=== PATIENT | female | born 1980 | race Hispanic/Latino ===

== ENCOUNTER 2018-01-06 17:54 | Emergency (ER) | payer OTHER ==
[2018-01-06 18:41] VITALS: RESP 18
--- NOTE | 2018-01-06 18:56 | ED PDOC ---
HPI: Skin/Bite Injury Time Seen by Provider: 01/06/18 18:57 Chief Complaint (Nursing): Abnormal Skin Integrity History Per: Patient History/Exam Limitations: no limitations Additional Complaint(s): 37-year-old female, presents to the emergency department with complaints of a painful rash to dorsal aspect of left foot that started around 03:00 this morning. Initially, pt notes area was itchy, and progressively became more painful and red. Over the past 5-6 hours, she noticed some blisters, prompting visit. States she is using antifungal creams on the area with no relief. Denies any weakness/numbness, known allergens. Past Medical History Reviewed: Historical Data, Nursing Documentation, Vital Signs Vital Signs: Last Vital Signs Temp 98.2 F 01/06/18 22:30 Pulse 70 01/06/18 22:30 Resp 18 01/06/18 22:30 BP 128/78 01/06/18 22:30 Pulse Ox 99 01/06/18 22:30 - Family History Family History: States: No Known Family Hx - Home Medications Home Medications: Ambulatory Orders Medication Instructions Recorded Cephalexin [Keflex] 500 mg PO QID #28 capsule 01/06/18 Methylprednisolone [Medrol Dose 4 mg PO DAILY #21 mg 01/06/18 Pack (21 tabs)] - Allergies Allergies/Adverse Reactions: Allergies Allergy/AdvReac Type Severity Reaction Status Date / Time No Known Allergies Allergy Verified 01/06/18 18:39 Review of Systems ROS Statement: Except As Marked, All Systems Reviewed And Found Negative Constitutional: Negative for: Fever Musculoskeletal: Positive for: Foot Pain Skin: Positive for: Rash Neurological: Negative for: Weakness, Numbness Physical Exam - Reviewed Nursing Documentation Reviewed: Yes Vital Signs Reviewed: Yes - Physical Exam Appears: Positive for: Non-toxic, No Acute Distress Skin: Positive for: Normal Color, Warm, Dry Eye Exam: Positive for: Normal appearance Neck: Positive for: Painless ROM Extremity: Positive for: Normal ROM, Other (Left foot: swelling, warmth, redness and blistering to dorsal aspect.). Negative for: Deformity, Swelling Neurologic/Psych: Positive for: Alert, Oriented - Laboratory Results Result Diagrams: 01/06/18 20:11 01/06/18 20:11 - ECG O2 Sat by Pulse Oximetry: 100 (RA) Pulse Ox Interpretation: Normal - Progress ED Course And Treament: TORADOL 15 MG IV X 1 DOSE SEEN BY PODIATRY RESIDENT. WILL GIVE RX FOR MEDROL DOSE PACK/KEFLEX AND PATIENT TO F/U WITH DR. HOUSTON THIS WEEK. Medical Decision Making Medical Decision Making: Plan; * Bloodwork * Ancef, Vancomycin, Tetanus * Blood culture * Reassess and Disposition Scribe Attestation: Documented by Lizzie Shelby, acting as a scribe for ELENA Cehn. Provider Scribe Attestation: All medical record entries made by the Scribe were at my direction and personally dictated by me. I have reviewed the chart and agree that the record accurately reflects my personal performance of the history, physical exam, medical decision making, and the department course for this patient. I have also personally directed, reviewed, and agree with the discharge instructions and disposition. Disposition - Clinical Impression Clinical Impression: Cellulitis, Insect bite of foot with local reaction - Patient ED Disposition Is Patient to be Admitted: No - Disposition Referrals: Xander Houston DPM [Staff Provider] - Disposition: Routine/Home Disposition Time: 21:58 Condition: FAIR Additional Instructions: NEW ADDRESS FOR DR. HOUSTON: [address] [place] [address], [address] [place] [id number] Prescriptions: Cephalexin [Keflex] 500 mg PO QID #28 capsule Methylprednisolone [Medrol Dose Pack (21 tabs)] 4 mg PO DAILY #21 mg Instructions: Cellulitis and Erysipelas (Skin Infections), Insect Bites and Stings (DC) Forms: [facility] ED School/Work Excuse
[2018-01-06] MEDS ORDERED: ceFAZolin 1 GM in Sodium Chloride 0.9% 100 ML IVPB ONE (18:57)
[2018-01-06] MEDS ORDERED: Tdap Vaccine 0.5 ml Vial (10-64 yrs) IM ONE ×2 (18:58→20:20)
[2018-01-06] MEDS ORDERED: DiphenhydrAMINE 50 mg/ml Inj IM STA (20:16)
[2018-01-06] MEDS ORDERED: Vancomycin 1 g Inj ONE (20:21)
[2018-01-06 20:24] LABS: BASO % 0.4 % (0.0-2.0); EOS # 0.2 K/uL (0.0-0.7); EOS % 2.4 % (0.0-4.0); HEMOGLOBIN 14.4 g/dL (12.0-16.0); LYMPH # 2.8 K/uL (1.0-4.3); LYMPH % 33.2 % (20.0-40.0); MEAN CELL VOLUME 89.8 fl (81.0-99.0); MEAN CORPUSCULAR HEMOGLOBIN 29.9 pg (27.0-31.0); MEAN CORPUSCULAR HGB CONC 33.3 g/dL (33.0-37.0); MEAN PLATELET VOLUME 8.8 fl (7.2-11.7); MONO # 0.5 K/uL (0.0-0.8); MONO % 6.5 % (0.0-10.0); NEUT # 4.8 K/uL (1.8-7.0); NEUT % 57.5 % (50.0-75.0); NRBC % 0.1 % (0.0-0.0); RBC 4.82 Mil/uL (3.80-5.20); RED CELL DISTRIBUTION WIDTH 13.1 % (11.5-14.5); WHITE BLOOD COUNT 8.3 K/uL (4.8-10.8)
[2018-01-06 20:37] LABS: BLOOD UREA NITROGEN 17 mg/dl (7-17); CALCIUM 9.6 mg/dL (8.4-10.2); GFR AFRICAN-AMERICAN > 60; GFR NON-AFRICAN AMERICAN > 60
--- NOTE | 2018-01-06 21:22 | CP.PCM.CON ---
History of Present Illness - History of Present Illness History of Present Illness: Podiatry Consult Note - Dr. Vargas 37F unremarkable PMHx seen and evaluated in ED concerning painful rash on left foot. Patient states yesterday evening she was bitten by a mosquito; she woke up around 03:00 this morning because of the itchiness so applied topical Benadryl to bite site. Patient relates throughout the night the itchiness persisted but noticed she started developing painful blisters and a rash along the area where she applied the Benadryl - states she additionally applied hydrocortisone cream and antifungal creams for relief of symptoms though without success. Patient states this morning symptoms worsened, so went to an urgent care facility for treatment who then sent patient to ED for further evaluation. Of note, patient states she was in [place] over the weekend and was walking around outside barefoot. Patient admits a similar episode occurred in the past which spontaneously resolved within a few days. Patient denies any allergies, history of hay fever, eczema, or allergic rhinitis. Denies N/V/F/D/C/ SOB. PMHx: denies PSH: adenoidectomy, removal of cyst from tonsil FH: DM SH: occasional ETOH, denies tobacco/illicit drug use All: denies Review of Systems - Review of Systems All systems: reviewed and no additional remarkable complaints except (as per HPI ) Meds Home Medications: Home Medication List Medication Instructions Recorded Confirmed Type Cephalexin [Keflex] 500 mg PO QID #28 capsule 01/06/18 Rx Methylprednisolone [Medrol Dose 4 mg PO DAILY #21 mg 01/06/18 Rx Pack (21 tabs)] Allergies/Adverse Reactions: Allergies Allergy/AdvReac Type Severity Reaction Status Date / Time No Known Allergies Allergy Verified 01/06/18 18:39 Physical Exam - Constitutional Appears: Well, Non-toxic, No Acute Distress - Extremities Exam Additional comments: LLE focused physical exam VASC: DP and PT pulses palpable 2/4. CFT <3 seconds to all digits. Temperature gradient warm to warm from proximal to distal. Moderate non-pitting edema present to foot. NEURO: Gross sensation intact. DERM: Weeping blisters with surrounding erythema noted to dorsum of hallux extending into 1st webspace. Urticaria present encompassing digits 1-5, in plantar medial arch, and along forefoot extending into ankle joint. ORTHO: Pain on palpation to blisters. Pain upon active and passive ROM digits 1- 5, MTJ, STJ, ankle joint. - Neurological Exam Neurological exam: Alert, Oriented x3 - Psychiatric Exam Psychiatric exam: Normal Affect, Normal Mood Results - Vital Signs Recent Vital Signs: Last Vital Signs Temp 98.7 F 01/06/18 18:39 Pulse 77 01/06/18 18:39 Resp 18 01/06/18 18:39 BP 130/65 01/06/18 18:39 Pulse Ox 100 01/06/18 19:01 - Labs Result Diagrams: 01/06/18 20:11 01/06/18 20:11 Labs: Laboratory Results - last 24 hr 01/06/18 01/06/18 20:11 20:11 WBC 8.3 RBC 4.82 Hgb 14.4 Hct 43.2 MCV 89.8 MCH 29.9 MCHC 33.3 RDW 13.1 Plt Count 275 MPV 8.8 Neut % (Auto) 57.5 Lymph % (Auto) 33.2 [place] % (Auto) 6.5 Eos % (Auto) 2.4 Baso % (Auto) 0.4 Neut # (Auto) 4.8 Lymph # (Auto) 2.8 [place] # (Auto) 0.5 Eos # (Auto) 0.2 Baso # (Auto) 0.0 Sodium 142 Potassium 4.7 Chloride 104 Carbon Dioxide 25 Anion Gap 18 BUN 17 Creatinine 0.7 Est GFR ( Amer) > 60 Est GFR (Non-Af Amer) > 60 Random Glucose 91 Calcium 9.6 Assessment & Plan - Assessment and Plan (Free Text) Assessment: 37F with painful urticaria 2/2 contact dermatitis vs. hypersensitivity reaction Plan: Patient seen and evaluated Discussed with attending, Dr. Vargas VSS, WBC 8.3 Ancef, Vancomycin, Benadryl given in ED Rx Medrol Dosepak Rx Keflex x7 days Wound dressed with Telfa, DSD - patient to continue QD dressing changes Patient to follow up with Dr. Vargas in office within 1 week Thank you for the consult
[2018-01-06 22:32] VITALS: BP 128/78; PULSE 70; TEMP 98.2
[2018-01-06 23:40] VITALS: O2SAT 100
== END 2018-01-06 23:38 | disposition home or self-care (01) ==
LOC: H.ER 17:54
DX: L03.116 Cellulitis of left lower limb (principal); Z83.3 Family history of diabetes mellitus; W57.XXXA Bitten or stung by nonvenomous insect and other nonvenomous arthropods, initial encounter
CPT/HCPCS: 80048; 81025; 85025; 87040; 96365; 96375; 99283; J0690; J1885